=== PATIENT | male | born 2000 | race Two or more races ===

== ENCOUNTER 2023-06-25 21:11 | Emergency (ER) | payer SELFPAY ==
[~2023-06-25] VITALS: Ht 162.6 cm; Wt 75.0 kg
[2023-06-25 21:11] VITALS: BP 100/50; PULSE 70; RESP 20; O2SAT 98
== END 2023-06-26 00:47 | disposition left against medical advice (07) ==
LOC: ER 21:11
DX: H57.12 Ocular pain, left eye (principal); Z53.21 Procedure and treatment not carried out due to patient leaving prior to being seen by health care provider